=== PATIENT | male | born 1950 ===

== ENCOUNTER 2021-11-16 05:27 | Day surgery (SDC) | payer OTHER ==
[~2021-11-16] VITALS: Ht 170.2 cm; Wt 83.0 kg
[2021-11-16] MEDS ORDERED: Vitamin D1000 UNI1 PO (06:41)
[2021-11-16] MEDS ORDERED: B-12 COMPL1000 MCG/2 IM (06:41)
--- NOTE | 2021-11-16 08:32 | NUR ---
PT RETURNED TO RECOVERY ROOM IN [facility]. LACW SITE SOFT NON-TENDER WITH NO HEMATOMA, NO BLEEDING AND INTACT DRESSING. PT DENIES CHEST PAIN. CALL LIGHT IN REACH. PT EATING BREAKFAST.
--- NOTE | 2021-11-16 09:31 | NUR ---
DR CAMPOS MADE AWARE OF BIGEMINAL/TRIGEMINAL PVCS.
--- NOTE | 2021-11-16 10:10 | NUR ---
DISCHARGE INSTRUCTIONS REVIEWED ALL QUESTIONS ANSWERED. NO CHANGES TO LACW SITE. 20 G IV DISCONTINUED FROM LEFT HAND WITH INTACT CANNULA. PT AMBULATED OUT.
== END 2021-11-16 10:55 | disposition home or self-care (01) ==
LOC: MHTC 05:27
PROC: 0JPT0PZ Removal of Cardiac Rhythm Related Device from Trunk Subcutaneous Tissue and Fascia, Open Approach (ICD-10-PCS; principal; 2021-11-16)
DX: Z45.02 Encounter for adjustment and management of automatic implantable cardiac defibrillator (principal); I10 Essential (primary) hypertension; Z79.82 Long term (current) use of aspirin; Z88.8 Allergy status to other drugs, medicaments and biological substances; Z95.810 Presence of automatic (implantable) cardiac defibrillator
CPT/HCPCS: 33241; J0690; J1580; J1644; J7030; J7040